=== PATIENT | female | born 1960 | race Caucasian/White ===

== ENCOUNTER 2018-04-18 06:58 | Emergency (ER) | payer BC, SELFPAY ==
[~2018-04-18] VITALS: Ht 172.7 cm; Wt 128.4 kg
[2018-04-18 07:01] VITALS: BP 163/91
[2018-04-18] MEDS ORDERED: IRBE75TA31 PO (07:18)
[2018-04-18] MEDS ORDERED: KETOROLAC 30 MG/1 ML IM ONE (07:30)
[2018-04-18] MEDS ORDERED: KETOROLAC 30 MG/1 ML ONE (07:42)
--- NOTE | 2018-04-18 07:57 | NUR ---
PT AMBULATED TO XRAY
--- NOTE | 2018-04-18 08:07 | NUR ---
PT AMBULATED BACK TO ROOM PT STATES SHE FEELS MUCH BETTER NOW AFTER THE TORADOL
[2018-04-18] MEDS ORDERED: HYDROcodone/APAP 5/325 TABLET ONE (08:56)
[2018-04-18] MEDS ORDERED: METHOCARBAMOL 750 MG TABLET ONE (08:57)
[2018-04-18] MEDS ORDERED: METHOCARBAMOL 750 MG TABLET PO ONE (09:00)
[2018-04-18] MEDS ORDERED: HYDROcodone/APAP 5/325 TABLET PO ONE (09:00)
== END 2018-04-18 09:47 | disposition home or self-care (01) ==
LOC: ED 09:10
DX: M54.5 Low back pain (principal); M54.2 Cervicalgia; E11.9 Type 2 diabetes mellitus without complications; I10 Essential (primary) hypertension
CPT/HCPCS: 72110; 96372; 99283; J1885

== ENCOUNTER 2018-05-11 08:26 | Inpatient (IN) | payer BC ==
[~2018-05-11] VITALS: Ht 172.7 cm; Wt 129.6 kg
[~2018-05-11 08:26] MED LIST: IRBE75TA31 PO
--- NOTE | 2018-05-11 08:38 | NUR ---
PT BIB [facility] FOR MULTIPLE COMPLAINTS. PT STATES SHE HAS HAD BONE PAIN IN HANDS, AND ARMS AND LEGS. PT ABLE TO AMBULATE FROM [facility] TO [facility] WITH [facility]BA WITH [facility]. PT STATED THE PAIN STARTED IN MARCH. PT A&OX4. PT WITH COUGH. PER [facility], PT HAS BLOOD IN SPUTUM. PT STATED THAT SHE HAS BEEN TAKING ALLEVE AND ADVIL FOR A WHILE. ASSESSMENT COMPLETED.
--- NOTE | 2018-05-11 08:58 | NUR ---
REPORT GIVEN TO YISEL MOODY
--- NOTE | 2018-05-11 09:24 | NUR ---
ASSUMED CARE. C/O ALL-OVER BODY PAIN THAT HAS WORSENED. PT AMBULATED WITH TECH TO XRAY.
[2018-05-11] MEDS ORDERED: ACETAMINOPHEN 500 MG TABLET PO ONE (09:30)
[2018-05-11 09:39] LABS: BASOPHILS # (AUTO) 0.02 x10^3/uL (0-0.1); BASOPHILS % (AUTO) 0 % (0-1); EOSINOPHILS # (AUTO) 0.26 x10^3/uL (0-0.4); EOSINOPHILS % (AUTO) 3 % (1-7); HCT (SEDRATE) 36.7 % (34.6-47.8); LYMPHOCYTES # (AUTO) 0.72 x10^3/uL (1-3.4); LYMPHOCYTES % (AUTO) 8 % (22-44); MD NO; MEAN CORPUSCULAR HEMOGLOBIN 26.1 pg (27.0-34.8); MEAN CORPUSCULAR HGB CONC 32.5 g/dL (32.4-35.8); MEAN CORPUSCULAR VOLUME 80.4 fL (80-100); MEAN PLATELET VOLUME 8.4 fL (7.4-10.4); MONOCYTES # (AUTO) 0.36 x10^3/uL (0.2-0.8); MONOCYTES % (AUTO) 4 % (2-9); NEUTROPHILS # (AUTO) 8.07 x10^3/uL (1.8-6.8); NEUTROPHILS % (AUTO) 86 % (42-75); PLATELET COUNT 388 x10^3/uL (130-400); RED BLOOD COUNT 4.56 x10^6/uL (3.82-5.3); RED CELL DISTRIBUTION WIDTH 14.4 % (9.6-15.2)
[2018-05-11] MEDS ORDERED: ACETAMINOPHEN 500 MG TABLET ONE (09:49)
[2018-05-11 09:50] LABS: FREE T4 (FREE THYROXINE) 1.51 ng/dL (0.76-1.46); THYROID STIMULATING HORMONE 2.26 mIU/L (0.358-3.740)
[2018-05-11 09:58] LABS: RAPID INFLUENZA A Negative (Negative); RAPID INFLUENZA B Negative (Negative)
--- NOTE | 2018-05-11 10:05 | NUR ---
SITTING UP ON EDGE OF BED. GIVEN TYLENOL. LAB AT BEDSIDE
[2018-05-11 10:27] LABS: ALANINE AMINOTRANSFERASE 19 U/L (12-78); ALBUMIN 3.1 g/dL (3.4-5.0); ANION GAP 5 mmol/L (5-15); CALCIUM 8.7 mg/dL (8.5-10.1); CHLORIDE 106 mmol/L (98-107); CREATININE 0.57 mg/dL (0.55-1.02)
[2018-05-11 10:30] LABS: ALKALINE PHOSPHATASE 88 U/L (45-117); BILIRUBIN,TOTAL 0.7 mg/dL (0.2-1.0); TOTAL PROTEIN 7.4 g/dL (6.4-8.2)
[2018-05-11] MEDS ORDERED: LEVOFLOXACIN/PMX 750MG/150ML 150 ML IV ONE (11:00)
[2018-05-11] MEDS ORDERED: LEVOFLOXACIN/PMX 750MG/150ML 150 ML ONE (11:21)
--- NOTE | 2018-05-11 11:33 | NUR ---
pt remains seated in chair. iv established and antibiotic started. report briy
[2018-05-11] MEDS ORDERED: ONDANSETRON 2MG/ML, 2ML IVPush PRN (12:30)
[2018-05-11] MEDS ORDERED: DOCUSATE 100 MG CAPSULE PO PRN (12:30)
[2018-05-11] MEDS ORDERED: hydrALAzine 20 MG/ML, 1ML IVPush PRN (12:30)
[2018-05-11] MEDS ORDERED: BUTALB/APAP/CAFFEINE 50MG/325MG/40MG PO PRN (12:30)
[2018-05-11] MEDS ORDERED: GUAIFENESIN/COD200MG-20MG/10ML LIQUID PO PRN (12:30)
[2018-05-11] MEDS ORDERED: ACETAMINOPHEN 325 MG TABLET PO PRN (12:30)
[2018-05-11] MEDS ORDERED: morphine SULFATE 10 MG/ML, 1ML IVPush PRN (12:30)
[2018-05-11] MEDS: LACTATED RINGERS 1,000 ML IV SCH ×2 (14:38→23:35)
[2018-05-11 15:19] VITALS: BP 106/67
[2018-05-11] MEDS: ENOXAPARIN 40 MG/0.4 ML SQ SCH (15:31)
[2018-05-11] MEDS: CYCLOBENZAPRINE 10 MG TABLET PO PRN (15:44)
[2018-05-11] MEDS: OXYcodone IR 5MG TABLET PO PRN ×2 (15:44→16:56)
[2018-05-11 20:22] VITALS: BP 127/78
[2018-05-11 21:39] VITALS: BP 153/77
[2018-05-11 21:59] LABS: CULTURE INDICATED? YES; MICROSCOPIC INDICATED
[2018-05-12 02:38] VITALS: BP 111/68
[2018-05-12 05:26] LABS: BASOPHILS # (AUTO) 0.01 x10^3/uL (0-0.1); BASOPHILS % (AUTO) 0 % (0-1); EOSINOPHILS # (AUTO) 0.23 x10^3/uL (0-0.4); EOSINOPHILS % (AUTO) 3 % (1-7); LYMPHOCYTES # (AUTO) 0.79 x10^3/uL (1-3.4); LYMPHOCYTES % (AUTO) 12 % (22-44); MD NO; MEAN CORPUSCULAR HEMOGLOBIN 26.1 pg (27.0-34.8); MEAN CORPUSCULAR HGB CONC 32.3 g/dL (32.4-35.8); MEAN CORPUSCULAR VOLUME 80.8 fL (80-100); MEAN PLATELET VOLUME 8.4 fL (7.4-10.4); MONOCYTES # (AUTO) 0.39 x10^3/uL (0.2-0.8); MONOCYTES % (AUTO) 6 % (2-9); NEUTROPHILS # (AUTO) 5.46 x10^3/uL (1.8-6.8); NEUTROPHILS % (AUTO) 79 % (42-75); PLATELET COUNT 324 x10^3/uL (130-400); RED BLOOD COUNT 3.86 x10^6/uL (3.82-5.3); RED CELL DISTRIBUTION WIDTH 14.6 % (9.6-15.2)
[2018-05-12 05:28] LABS: CHLORIDE 107 mmol/L (98-107)
[2018-05-12 05:40] LABS: ANION GAP 4 mmol/L (5-15); CALCIUM 8.2 mg/dL (8.5-10.1); CREATININE 0.47 mg/dL (0.55-1.02)
[2018-05-12 05:50] LABS: HEMOGLOBIN A1C 6.1 % (4.2-6.3)
[2018-05-12 07:15] VITALS: BP 115/66
[2018-05-12] MEDS: PAROXETINE 10 MG TABLET PO SCH (08:42)
[2018-05-12] MEDS: IRBESARTAN 150 MG TABLET PO SCH (08:42)
[2018-05-12] MEDS: LEVOFLOXACIN/PMX 750MG/150ML 150 ML IV SCH (10:53)
[2018-05-12] MEDS: OXYcodone IR 5MG TABLET PO PRN ×2 (12:40→20:01)
[2018-05-12] MEDS: ENOXAPARIN 40 MG/0.4 ML SQ SCH (12:40)
[2018-05-12 13:43] VITALS: BP 136/61
[2018-05-12 20:00] VITALS: BP 119/71
[2018-05-12] MEDS: CYCLOBENZAPRINE 10 MG TABLET PO PRN (20:02)
[2018-05-13 01:04] VITALS: BP 115/61
[2018-05-13] MEDS: IRBESARTAN 150 MG TABLET PO SCH (07:33)
[2018-05-13] MEDS: PAROXETINE 10 MG TABLET PO SCH (07:33)
[2018-05-13 07:34] VITALS: BP 108/72
[2018-05-13] MEDS: LEVOFLOXACIN/PMX 750MG/150ML 150 ML IV SCH (10:51)
[2018-05-13 12:13] VITALS: BP 114/75
[2018-05-13] MEDS: ENOXAPARIN 40 MG/0.4 ML SQ SCH (12:30)
[2018-05-13 19:30] VITALS: BP 112/71
[2018-05-13] MEDS: CYCLOBENZAPRINE 10 MG TABLET PO PRN (21:03)
[2018-05-13] MEDS: OXYcodone IR 5MG TABLET PO PRN (21:03)
[2018-05-14 03:55] VITALS: BP 111/74
[2018-05-14 05:24] LABS: BASOPHILS # (AUTO) 0.02 x10^3/uL (0-0.1); BASOPHILS % (AUTO) 0 % (0-1); EOSINOPHILS # (AUTO) 0.28 x10^3/uL (0-0.4); EOSINOPHILS % (AUTO) 4 % (1-7); LYMPHOCYTES % (AUTO) 12 % (22-44); MD NO; MEAN CORPUSCULAR HEMOGLOBIN 26.9 pg (27.0-34.8); MEAN CORPUSCULAR VOLUME 81.4 fL (80-100); MONOCYTES # (AUTO) 0.42 x10^3/uL (0.2-0.8); MONOCYTES % (AUTO) 6 % (2-9); NEUTROPHILS # (AUTO) 5.99 x10^3/uL (1.8-6.8); NEUTROPHILS % (AUTO) 79 % (42-75); PLATELET COUNT 334 x10^3/uL (130-400); RED CELL DISTRIBUTION WIDTH 14.8 % (9.6-15.2)
[2018-05-14 05:30] LABS: ANION GAP 2 mmol/L (5-15); CALCIUM 8.7 mg/dL (8.5-10.1); CHLORIDE 107 mmol/L (98-107)
[2018-05-14 05:32] LABS: CREATININE 0.53 mg/dL (0.55-1.02)
[2018-05-14 07:20] VITALS: BP 113/76
[2018-05-14] MEDS: IRBESARTAN 150 MG TABLET PO SCH (09:52)
[2018-05-14] MEDS: PAROXETINE 10 MG TABLET PO SCH (09:52)
[2018-05-14] MEDS: LEVOFLOXACIN/PMX 750MG/150ML 150 ML IV SCH (11:34)
[2018-05-14] MEDS ORDERED: LEVO750T6 PO (12:55)
[2018-05-14] MEDS ORDERED: ACET325T14 PO (12:56)
[2018-05-14] MEDS: ENOXAPARIN 40 MG/0.4 ML SQ SCH (12:58)
[2018-05-14] MEDS ORDERED: PARO10TA3 PO (13:06)
== END 2018-05-14 16:18 | disposition home or self-care (01) | DRG 871 ==
LOC: ED 09:13 → EDIP 10:47 → 3NE 11:55
PROVIDERS: ADMIT Internal Medicine; ATTEND Internal Medicine
DX: A41.9 Sepsis, unspecified organism (principal); J15.9 Unspecified bacterial pneumonia; Z68.41 Body mass index [BMI] 40.0-44.9, adult; E66.9 Obesity, unspecified; F41.9 Anxiety disorder, unspecified; I07.1 Rheumatic tricuspid insufficiency; I10 Essential (primary) hypertension; Z88.0 Allergy status to penicillin; R73.02 Impaired glucose tolerance (oral); M25.50 Pain in unspecified joint
CPT/HCPCS: 0399T; 36415; 71046; 80048; 80053; 81001; 82550; 83036; 83605; 83735; 84145; 84439; 84443; 85025; 85651; 86038; 87040; 87086; 87400; 87449; 93306; 93970; 96374; G0378; J1650; J1956; J7120